=== PATIENT | female | born 1975 | race African-American/Black ===

== ENCOUNTER 2020-12-22 14:44 | Emergency (ER) | payer MEDICAID ==
[~2020-12-22] VITALS: Ht 154.9 cm; Wt 61.0 kg
[2020-12-22] MEDS ORDERED: ACETAMINOPHEN 325MG TABLET PO ONE (16:15)
[2020-12-22] MEDS ORDERED: ONDANSETRON 4MG ODT PO ONE (16:15)
[2020-12-22 16:33] LABS: BASOPHILS % 0.4 % (0.0-2.0); HEMATOCRIT. 39.2 % (36.0-48.0); HEMOGLOBIN. 13.5 g/dL (12.0-16.0); LYMPHOCYTES % 11.4 % (20.0-50.0); MEAN CORPUSCULAR HEMOGLOBIN 31.4 pg (28.0-32.0); MEAN CORPUSCULAR VOLUME 91.7 fL (81.0-99.0); MEAN PLATELET VOLUME 8.2 fl (7.4-10.4); MONOCYTES % 6.2 % (2.0-8.0); PLATELET 380 x1000/uL (130-400); RED BLOOD CELL COUNT 4.28 mill/uL (4.2-5.4); RED CELL DISTRIBUTION WIDTH 13.5 % (11.6-14.6)
[2020-12-22 16:37] LABS: CHLORIDE 104 mEq/L (98-107)
[2020-12-22 16:43] LABS: HCG SCREEN NEGATIVE
[2020-12-22] MEDS ORDERED: IBUP-2028 MT (16:55)
[2020-12-22 17:15] VITALS: BP 155/89
[2020-12-23] MEDS ORDERED: ONDA4TAB5 PO (10:14)
== END 2020-12-22 17:18 | disposition home or self-care (01) ==
LOC: ER 14:44
DX: R11.2 Nausea with vomiting, unspecified (principal); R51.9 Headache, unspecified; F15.10 Other stimulant abuse, uncomplicated; Z98.890 Other specified postprocedural states
CPT/HCPCS: 36415; 80053; 81025; 84703; 85025; 93005; 99284; Q0162

== ENCOUNTER 2020-12-23 07:23 | Emergency (ER) | payer MEDICAID ==
[~2020-12-23] VITALS: Ht 167.6 cm; Wt 65.0 kg
[~2020-12-23 07:23] MED LIST: IBUP-2028 MT
[2020-12-23] MEDS ORDERED: SODIUM CHLORIDE 0.9% 1,000 ML IV ONE (08:30)
[2020-12-23] MEDS ORDERED: ONDANSETRON 4MG ODT PO STA (08:30)
[2020-12-23 08:40] LABS: BASOPHILS % 0.5 % (0.0-2.0); EOSINOPHILS % 0.1 % (0.0-5.0); HEMATOCRIT. 40.4 % (36.0-48.0); HEMOGLOBIN. 13.8 g/dL (12.0-16.0); LYMPHOCYTES % 11.4 % (20.0-50.0); MEAN CORPUSCULAR HEMOGLOBIN 31.6 pg (28.0-32.0); MEAN CORPUSCULAR VOLUME 92.7 fL (81.0-99.0); MEAN PLATELET VOLUME 8.4 fl (7.4-10.4); PLATELET 376 x1000/uL (130-400); RED BLOOD CELL COUNT 4.35 mill/uL (4.2-5.4); RED CELL DISTRIBUTION WIDTH 13.3 % (11.6-14.6)
[2020-12-23 08:44] LABS: CHLORIDE 99 mEq/L (98-107)
[2020-12-23 09:13] LABS: PROTHROMBIN TIME 10.6 sec (9.6-11.0)
[2020-12-23 09:55] VITALS: BP 143/86
[2020-12-23] MEDS ORDERED: ONDA4TAB5 PO (10:14)
== END 2020-12-23 10:52 | disposition home or self-care (01) ==
LOC: ER 07:23
DX: R11.2 Nausea with vomiting, unspecified (principal); F12.10 Cannabis abuse, uncomplicated
CPT/HCPCS: 36415; 80053; 83690; 85025; 85610; 93005; 96360; 96361; 99284; J7030; Q0162; Z7610